=== PATIENT | male | born 1945 | race Caucasian/White ===

== ENCOUNTER 2020-06-09 10:48 | Outpatient (REF) | payer BC, SELFPAY ==
[2020-06-09 11:01] LABS: MANUAL DIFF FLAG NO
[2020-06-09 11:39] LABS: Basophils Absolute Auto 0.1 X10*3/uL (0.0-0.2); Basophils Percent Auto 0.8 % (0-2); Eosinophils Absolute Auto 0.1 X10*3/uL (0.0-0.4); Eosinophils Percent Auto 1.5 % (0-4); Hematocrit 46.4 % (42-52); Hemoglobin 15.3 g/dl (14.0-18.0); Imm Gran Abs Auto 0.07 X10*3/uL (0.00-0.03); Imm Gran Pct Auto 0.8 % (0.0-0.4); Lymphocytes Absolute Auto 4.1 X10*3/uL (1.2-4.9); Lymphocytes Percent Auto 46.1 % (20-40); Mean Corpuscular Hemoglobin 30.8 pg (27.0-33.0); Mean Corpuscular Volume 93.5 fL (80-98); Monocytes Absolute Auto 0.8 X10*3/uL (0.1-1.2); Neutrophils Absolute Auto 3.7 X10*3/uL (2.0-8.3); Neutrophils Percent Auto 41.8 % (45-73); Platelet Count 199 X10*3/uL (160-400); Red Blood Count 4.96 X10*6/uL (4.60-5.80); Red Cell Distribution Width 12.7 % (11.0-16.0); White Blood Count 8.8 X10*3/uL (4.8-10.8)
[2020-06-09 11:52] LABS: Glucose Urine UA NEG (NEG); Leukocyte Esterase Urine NEG (NEG); Nitrite Urine NEG (NEG); PH 5.5 (5.0-8.0); Urine Blood NEG (NEG); Urine Ketones NEG (NEG); Urine Protein NEG (NEG-TRACE)
[2020-06-09 11:54] LABS: Estimated Average Glucose 103 mg/dL; Hemoglobin A1c % 5.2 %
[2020-06-09 11:56] LABS: Appearance Urine CLEAR; Color Urine YELLOW
[2020-06-09 12:15] LABS: Alanine Aminotransferase 23 U/L (0-40); Alkaline Phosphatase 54 U/L (39-117); Anion Gap 10 (12-20); Aspartate Amino Transferase 25 U/L (5-37); Bilirubin Total 0.6 mg/dL (0.0-1.0); Blood Urea Nitrogen 15 mg/dL (9-16); Calcium 8.2 mg/dL (8.4-10.2); Carbon Dioxide 29 mmol/L (22-29); Chloride 105 mmol/L (96-108); Cholesterol 179 mg/dL; Estimated Glomerular Filt Rate > 60; Glucose Fasting 99 mg/dL (60-99); HDL Cholesterol 34 mg/dL; LDL Cholesterol Calculated 98 mg/dl; Sodium 140 mmol/L (135-145); Total Protein 6.3 g/dL (6.5-8.0); Triglycerides 239 mg/dL
[2020-06-09 12:36] LABS: PSA,Total (Free>4and<10) < 0.05 ng/mL (0.00-4.00)
== END 2020-06-09 10:49 | disposition home or self-care (01) ==
LOC: HO.LNP 10:48
PROVIDERS: Visit Provider Internal Medicine
DX: Z00.00 Encounter for general adult medical examination without abnormal findings (principal); I10 Essential (primary) hypertension; R73.09 Other abnormal glucose; D72.820 Lymphocytosis (symptomatic)
CPT/HCPCS: 80053; 80061; 81003; 83036; 84153; 85025

== ENCOUNTER 2020-06-15 12:49 | Outpatient (REF) | payer BC, SELFPAY ==
--- NOTE | ~2020-06-15 | XR_ITS ---
EXAMINATION: XR CHEST CLINICAL INFORMATION: Travel advice encounter. COMPARISON: 08/24/2017 TECHNIQUE: Two views of the chest were obtained. FINDINGS: The lungs are hyperinflated but clear. The heart size and pulmonary vascularity is normal. There is mild levoscoliosis with moderate ventral spondylosis. No lytic process. XR/XR chest 2V IMPRESSION: Expanded lungs are clear. Levoscoliosis of moderate ventral spondylosis mid dorsal spine.
== END 2020-06-15 12:50 | disposition home or self-care (01) ==
LOC: HO.XRAY 12:49
PROVIDERS: PCP Internal Medicine; Visit Provider Internal Medicine
DX: Z71.84 Encounter for health counseling related to travel (principal)
CPT/HCPCS: 71046

== ENCOUNTER 2021-09-17 11:27 | Outpatient (REF) | payer BC, SELFPAY ==
[2021-09-17 11:32] LABS: MANUAL DIFF FLAG NO
[2021-09-17 12:37] LABS: Basophils Absolute Auto 0.1 X10*3/uL (0.0-0.2); Basophils Percent Auto 0.6 % (0-2); Eosinophils Absolute Auto 0.1 X10*3/uL (0.0-0.4); Eosinophils Percent Auto 0.8 % (0-4); Hematocrit 45.8 % (42.0-52.0); Hemoglobin 15.2 g/dl (14.0-18.0); Imm Gran Abs Auto 0.06 X10*3/uL (0.00-0.03); Imm Gran Pct Auto 0.6 % (0.0-0.4); Lymphocytes Absolute Auto 3.4 X10*3/uL (1.2-4.9); Mean Corpuscular HGB Conc 33.2 g/dl (31.0-36.0); Mean Corpuscular Hemoglobin 31.3 pg (27.0-33.0); Mean Corpuscular Volume 94.4 fL (80.0-98.0); Monocytes Absolute Auto 0.9 X10*3/uL (0.1-1.2); Monocytes Percent Auto 9.3 % (2-11); Neutrophils Absolute Auto 5.4 x10*3/uL (2.0-8.3); Neutrophils Percent Auto 54.7 % (45-73); Platelet Count 216 X10*3/uL (160-400); Red Blood Count 4.85 X10*6/uL (4.60-5.80); Red Cell Distribution Width 12.8 % (11.0-16.0)
[2021-09-17 13:03] LABS: Alanine Aminotransferase 14 U/L (0-40); Albumin Level 3.9 g/dL (3.5-5.0); Alkaline Phosphatase 49 U/L (39-117); Anion Gap 11 (12-20); Aspartate Amino Transferase 19 U/L (5-37); Bilirubin Total 0.8 mg/dL (0.0-1.0); Blood Urea Nitrogen 14 mg/dL (9-16); Calcium 8.7 mg/dL (8.4-10.2); Carbon Dioxide 27 mmol/L (22-29); Chloride 106 mmol/L (96-108); Cholesterol 181 mg/dL; Estimated Glomerular Filt Rate > 60; Glucose Fasting 99 mg/dL (60-99); HDL Cholesterol 39 mg/dL; LDL Cholesterol Calculated 115 mg/dl; Potassium 4.3 mmol/L (3.3-5.1); Sodium 140 mmol/L (135-145); Total Protein 6.3 g/dL (6.5-8.0); Triglycerides 139 mg/dL
[2021-09-17 13:10] LABS: Creatinine Urine 134.28 mg/dL; Microalbum/Creatinine Ratio Ur 5.9 ug/mg cr
[2021-09-17 13:12] LABS: Estimated Average Glucose 103 mg/dL; Hemoglobin A1c % 5.2 %
[2021-09-17 13:15] LABS: Appearance Urine CLEAR; Color Urine YELLOW; Glucose Urine UA NEG (NEG); Leukocyte Esterase Urine NEG (NEG); Nitrite Urine NEG (NEG); Specific Gravity - Urine 1.015 (1.005-1.025); Urine Blood NEG (NEG); Urine Ketones NEG (NEG); Urine Protein NEG (NEG-TRACE)
[2021-09-17 13:21] LABS: PSA,Total (Free>4and<10) < 0.05 ng/mL (0.00-4.00)
[2021-09-17 13:36] LABS: RBC Urine 0-2 /HPF (0); Squamous Epithelial Cell Urine TRACE /LPF; WBC Urine 0-2 /HPF (0-4)
== END 2021-09-17 11:28 | disposition home or self-care (01) ==
LOC: HO.LNP 11:27
PROVIDERS: Visit Provider Internal Medicine
DX: Z00.00 Encounter for general adult medical examination without abnormal findings (principal); Z12.5 Encounter for screening for malignant neoplasm of prostate; R73.03 Prediabetes; I10 Essential (primary) hypertension; D72.820 Lymphocytosis (symptomatic)
CPT/HCPCS: 80053; 80061; 81001; 82043; 83036; 84153; 85025

== ENCOUNTER 2023-01-27 10:27 | Outpatient (REF) | payer BC, SELFPAY ==
[2023-01-27 10:31] LABS: MANUAL DIFF FLAG NO
[2023-01-27 10:48] LABS: Basophils Absolute Auto 0.1 X10*3/uL (0.0-0.2); Basophils Percent Auto 0.8 % (0-2); Eosinophils Absolute Auto 0.1 X10*3/uL (0.0-0.4); Eosinophils Percent Auto 1.5 % (0-4); Hematocrit 48.4 % (42.0-52.0); Hemoglobin 15.7 g/dl (14.0-18.0); Imm Gran Abs Auto 0.05 X10*3/uL (0.00-0.03); Imm Gran Pct Auto 0.6 % (0.0-0.4); Lymphocytes Absolute Auto 4.4 X10*3/uL (1.2-4.9); Lymphocytes Percent Auto 49.3 % (20-40); Mean Corpuscular HGB Conc 32.4 g/dl (31.0-36.0); Mean Corpuscular Hemoglobin 30.5 pg (27.0-33.0); Mean Corpuscular Volume 94.2 fL (80.0-98.0); Monocytes Absolute Auto 0.8 X10*3/uL (0.1-1.2); Neutrophils Absolute Auto 3.5 x10*3/uL (2.0-8.3); Neutrophils Percent Auto 38.8 % (45-73); Platelet Count 213 X10*3/uL (160-400); Red Blood Count 5.14 X10*6/uL (4.60-5.80); Red Cell Distribution Width 12.6 % (11.0-16.0); White Blood Count 8.9 X10*3/uL (4.8-10.8)
[2023-01-27 10:54] LABS: Estimated Average Glucose 103 mg/dL; Hemoglobin A1c % 5.2 % (<6.0)
[2023-01-27 10:56] LABS: Appearance Urine Clear; Color Urine Yellow; Glucose Urine UA Negative (Negative); Leukocyte Esterase Urine Negative (Negative); Nitrite Urine Negative (Negative); Urine Blood Negative (Negative); Urine Ketones Negative (Negative); Urine Protein Negative (Neg-Trace)
[2023-01-27 11:09] LABS: Alanine Aminotransferase 23 U/L (0-40); Albumin Level 3.9 g/dL (3.5-5.0); Alkaline Phosphatase 51 U/L (39-117); Anion Gap 10 (12-20); Aspartate Amino Transferase 25 U/L (5-37); Bilirubin Total 0.4 mg/dL (0.0-1.0); Blood Urea Nitrogen 16 mg/dL (9-16); Calcium 9.1 mg/dL (8.4-10.2); Carbon Dioxide 29 mmol/L (22-29); Chloride 107 mmol/L (96-108); Cholesterol 174 mg/dL (<200); Estimated Glomerular Filt Rate > 60; Glucose Fasting 103 mg/dL (60-99); HDL Cholesterol 35 mg/dL (>40); LDL Cholesterol Calculated 108 mg/dL (<100); Potassium 3.9 mmol/L (3.3-5.1); Sodium 142 mmol/L (135-145); Total Protein 6.7 g/dL (6.5-8.0); Triglycerides 155 mg/dL (<150)
[2023-01-27 11:20] LABS: Prostate Specific Antigen < 0.10 ng/mL (<0.05-4.0)
[2023-01-27 11:32] LABS: Creatinine Urine 118.22 mg/dL
== END 2023-01-27 10:28 | disposition home or self-care (01) ==
LOC: HO.LNP 10:27
PROVIDERS: Visit Provider Internal Medicine
DX: Z00.00 Encounter for general adult medical examination without abnormal findings (principal); Z12.5 Encounter for screening for malignant neoplasm of prostate; R73.03 Prediabetes; D72.820 Lymphocytosis (symptomatic); I10 Essential (primary) hypertension
CPT/HCPCS: 80053; 80061; 81003; 82043; 82570; 83036; 84153; 85025

== ENCOUNTER 2023-02-27 14:20 | Outpatient (AMB) | payer BC, SELFPAY ==
--- NOTE | 2023-02-27 14:23 | A.OFFVIS_ITS ---
Intake Vital Signs 02/27/23 14:33 BP 135/80 Blood Pressure Location Rt brachial Position Sitting Intake Visit Reasons: right inguinal hernia, bulging ? strangulation Intake Note: This patient was referred for an assessment for right inguinal hernia. Patient c/o; Onset 2 days ago, reports no pain or discomfort, reports bulge in the right groin. Fish Peddler Required: No Accompanied by: Self / Same As Patient Allergies No Known Allergies Allergy (Verified 02/27/23 14:32) Medication List - Last Reconciled 02/27/23 by Eliu Funez MD No Known Home Meds HPI right inguinal hernia, bulging ? strangulation HPI Details 77-year-old male referred for right ingu inal hernia. He says that he has had this lesion a bulge on the right groin for years. This had never bothered him For the past 2 days, he had noticed the bulge had been larger and noticeable. He denies any pain or tenderness. He says that this really was not bothering him but he decided have this checked by his primary care physician today so was referred to me. He denies any GI complaints. He denies any nausea or vomiting. [facility] Medical History (Updated 02/27/23 @ 14:45 by Eliu Funez MD) Right inguinal hernia Macular degeneration Social History Alcohol intake: never Patient Tobacco Use Status: Never used Tobacco Review of Systems Const Denies chills and Denies fever(s) Card Denies chest pain, Denies dyspnea and Denies dyspnea on exertion Resp Denies cough, Denies dyspnea and Denies dyspnea on exertion GI Denies hematochezia and Denies change in bowel habits Denies hematuria and Denies difficulty urinating Musc Denies back pain and Denies limited range of motion Neuro Denies focal weakness and Denies convulsions Psych Denies depression and Denies mood swings Physical Exam Vital Signs: Last Vital Signs BP 135/80 02/27/23 14:33 GI Other: Large right inguinal hernia nontender Assessment & Plan Assessment & Plan (1) Right inguinal hernia: Code(s): K40.90 - Unilateral inguinal hernia, without obstruction or gangrene, not specified as recurrent Plan: He says he has noticed this bulge on the right groin for 2 days now. He did not have any pain or tenderness. I was able to reduce this without difficulty when he was in supine position. I did explain to him the option of proceeding with repair. I explained the technique of repair with mesh. I reviewed the risks including but not limited to bleeding, infection, injury to bowel, recurrence, postop pain, as well as the benefits and alternatives. He says he wants to proceed He did state that he wants this done after the holidays as he has a lot of family coming. He says that the hernia and does not really bother him at this time. He understands the risks of acute incarceration and the need for emergent surgery if this happens. Coding Level of Care Code New Pt Level 3 (80221) Diagnoses Right inguinal hernia K40.90
[2023-02-27 14:33] VITALS: BP 135/80
== END 2023-02-27 14:42 | disposition home or self-care (01) ==
PROVIDERS: PCP Internal Medicine; Visit Provider Surgery
DX: K40.90 Unilateral inguinal hernia, without obstruction or gangrene, not specified as recurrent (principal)
CPT/HCPCS: 99203

== ENCOUNTER → 2023-02-27 14:20 | Outpatient (BNVA) | payer BC, SELFPAY | PROVIDERS: PCP Internal Medicine; Visit Provider Surgery ==

== ENCOUNTER 2023-04-07 09:08 | Day surgery (SDC) | payer BC, SELFPAY ==
[2023-04-04 11:39] VITALS: BMI 28.6
--- NOTE | 2023-04-05 14:11 | HO.ANESPROP2 ---
HPI - Anesthesia Eval Consult details Narrative: 77yo M for Right Open Hernia Repair Inguinal w/mesh Otherwise healthy, No home rx PMFSH Active Problems Active Problems: All Active Problems (Updated 02/27/23 @ 14:45 by Eliu Funez MD) Right inguinal hernia (Acute) Macular degeneration (Acute) Past Medical History Medical History (Updated 02/27/23 @ 14:45 by Eliu Funez MD) Right inguinal hernia Macular degeneration Social History Social History Alcohol intake: never Patient Tobacco Use Status: Never used Tobacco Use of substances other than those prescribed or required for medical reasons: No Are you DNR?: No Advance Directives: No Advance Directives Information Provided: Yes Meds Allergies Allergy/AdvReac Type Severity Reaction Status Date / Time No Known Allergies Allergy Verified 04/07/23 09:25 Home Medications Medication Instructions Recorded Confirmed Last Taken Type No Known Home Meds 02/27/23 04/07/23 Unknown History Exam Height,Weight and Vital Signs: Height 5 ft 8 in Weight 85.275 kg Pertinent Lab Results Pertinent Lab Results: Laboratory Tests 01/27/23 Unknown WBC 8.9 Hgb 15.7 Hct 48.4 Plt Count 213 Sodium 142 Potassium 3.9 Chloride 107 Carbon Dioxide 29 BUN 16 Creatinine 0.97 Assessment and Plan Assessment Anesthesia Assessment: Chart Reviewed
[2023-04-07] VITALS (8 sets, daily range): BP systolic 129–157; BP diastolic 72–90; PULSE 71–80; RESP 16–18; TEMP 36.1–36.9; O2SAT 94–99; BMI 28.8
[2023-04-07] MEDS: Lactated Ringers 1,000 ML 100 ML IVCONT (09:48)
--- NOTE | 2023-04-07 11:01 | MHC.SHP ---
Pre-Procedural Eval Section A Date of Service: 04/07/23 Section B Chief Complaint: Unilateral inguinal hernia, without obstruction or Details of Present Illness: has reducible right inguinal hernia Relevant Family History (Specify if Yes): No Relevant Social History: None Present Medications: see Short Stay Collaborative assessment (macular degeneration) Allergies: Allergies Allergy/AdvReac Type Severity Reaction Status Date / Time No Known Allergies Allergy Verified 04/07/23 09:25 Review of Systems Sugical H&P ROS: Negative: Constitution, Cardiovascular, Respiratory, Neurological, Psychiatric, Hem-Onc, Allergic/Immunologic, Gastrointestinal, Genitourinary, Musculoskeletal, Integumentary, Endocrine and Eyes/Ears/Nose/Throat Exam Surgical H&P Exam: Normal: HEENT, Normal: Heart, Normal: Lungs, Normal: Extremities, Normal: Abdomen, Normal: Skin and Normal: Neurological Exam Comment: right inguinal hernia Plan Diagnosis/Plan: Unchanged I have reviewed the history and physical and performed a pertinent physical examination on my patient. No changes have occurred unless specified. Time Spent With Patient Time: Total time managing care of this patient today ____ minutes.
--- NOTE | 2023-04-07 11:53 | P.OP_ITS ---
Operative Note Operative Note Date of Service: 04/07/23 Narrative: Preop Diagnosis: Right inguinal hernia Postop diagnosis: Right inguinal hernia, indirect Procedure: Repair of a right inguinal hernia with mesh Surgeon: Eliu Funez MD property management assistant: NANCY Coburn The patient is a 77-year-old male with a reducible mass on the right groin consistent with a right inguinal hernia. He wanted to proceed with repair. He understood the technique of the procedure as well as the risks, benefits, and alternatives. He was brought to the operating room. He was placed supine under general anesthesia via laryngeal mask airway. The right groin was prepped and draped in the usual sterile fashion. A surgical time-out was done. The patient received cefazolin 2 g IV preoperatively. I infiltrated the planned line of incision with lidocaine 1%. I made a short incision along an imaginary line from the anterior superior iliac spine to the pubic ramus using a blade 15. This was carried down through the full-thickness of the skin and subcutaneous fat with electrocautery. I visualized the external oblique aponeurosis. I bluntly dissected this with a gauze to expose the external ring. I then made an incision on the external oblique aponeurosis using a blade 15 and extended this inferomedially to connect with the external ring. The inguinal canal was therefore entered . I bluntly dissected the spermatic cord and its contents with an index finger until was able to pass a [place] drain around this. This [place] drain was used for retraction. I identified the vas deferens and its accompanying vessels. I was able to visualized the fat containing hernia. This was along the anteromedial aspect of the cord and was an indirect hernia. I gently this from the rest of the cord contents with blunt dissection all the way down to the level of the internal ring. I was able to reduce the hernia completely. I reinforced internal ring with a large-sized Prolene plug. The plug was secured with Prolene 2 sutures to the shelving edge of the inguinal laterally and the internal oblique superiorly and medially using the inner leaves of the plug. I then used a keyhole mesh to reinforce the entire floor. The tails of the mesh were passed around the cord at the level of the internal ring. I secured these together with Prolene 2 sutures. I then secured the mesh to the shelving edge of the inguinal ligament laterally and the internal oblique superiorly and medially as well as the pubic ramus inferomedially with Prolene 2-0 sutures . I observed for hemostasis. I then irrigated. Once hemostasis was confirmed, I closed the external oblique aponeurosis with a running Polysorb 2-0 stitch to re-create the external ring. The subcutaneous layer was reapposed with Polysorb 3-0 interrupted sutures. Skin closure was achieved with Polysorb 4-0 subcuticular running sutures. Steri-Strips and dressings were applied. The area was infiltrated with Marcaine 0.5% for postop analgesia. The procedure was completed. The patient tolerated the procedure well. There were no immediate complications. Initial and final counts of sponges and instruments were correct. Estimated blood loss was about 5 cc. The patient was extubated w ithout difficulty and transferred to the recovery room with stable vital signs.
[2023-04-07] MEDS: oxyCODONE HCl Immed Release 5 MG TABLET PO (12:59)
[2023-04-07] MEDS: Acetaminophen 325 MG TABLET 650 MG PO (13:00)
== END 2023-04-07 14:20 | disposition home or self-care (01) ==
PROVIDERS: PCP Internal Medicine; Visit Provider Surgery
PROC: (CPT 49505; principal; 2023-04-07 11:40)
DX: K40.90 Unilateral inguinal hernia, without obstruction or gangrene, not specified as recurrent (principal); H35.30 Unspecified macular degeneration
CPT/HCPCS: 49505; C1781; J0690; J1100; J2371; J2405; J2704; J2795; J3010

== ENCOUNTER → 2023-04-07 09:08 | Outpatient (BNV) | payer BC, SELFPAY | PROVIDERS: PCP Internal Medicine; Visit Provider Surgery | DX: K40.90 Unilateral inguinal hernia, without obstruction or gangrene, not specified as recurrent (principal) | CPT/HCPCS: 49505 ==

== ENCOUNTER 2023-04-20 09:52 | Outpatient (AMB) | payer BC, SELFPAY ==
--- NOTE | 2023-04-20 09:55 | A.OFFVIS_ITS ---
Intake Vital Signs 04/20/23 10:01 BP 126/82 Blood Pressure Location Lt brachial Position Sitting Intake Visit Reasons: S/P RIH w/mesh Intake Note: This patient presents for a post-op assessment status post right inguinal hernia repair. Patient c/o; reports no complaints at this time. Activity Aide Required: No Accompanied by: Self / Same As Patient Allergies No Known Allergies Allergy (Verified 04/20/23 10:02) HPI S/P RIH w/mesh HPI Details She underwent repair of right inguinal hernia with mesh last 04/07/2022. He tolerated procedure well. He currently says that this is going well and denies any significant complaints. [facility] Medical History Right inguinal hernia Macular degeneration Surgical History History of right inguinal hernia repair (~04/07/23) Social History Alcohol intake: never Comment: with movement Patient Tobacco Use Status: Never used Tobacco Review of Systems Const Denies chills and Denies fever(s) Card Denies chest pain, Denies dyspnea and Denies dyspnea on exertion Resp Denies cough, Denies dyspnea and Denies dyspnea on exertion GI Denies hematochezia and Denies change in bowel habits Denies hematuria and Denies difficulty urinating Musc Denies back pain and Denies limited range of motion Neuro Denies focal weakness and Denies convulsions Psych Denies depression and Denies mood swings Physical Exam Vital Signs: Last Vital Signs BP 126/82 04/20/23 10:01 Const General: comfortable and no acute distress Resp Effort & Inspection: normal respiratory effort GI Other: Right inguinal repair site is well healed, not infected, repair intact Assessment & Plan Assessment & Plan (1) Right inguinal hernia: Code(s): K40.90 - Unilateral inguinal hernia, without obstruction or gangrene, not specified as recurrent Plan: Status post repair with mesh. He is doing very well. His incision is well healed. The repair site is intact. I advised him to avoid any lifting more than 20 lb for full month. He can follow up on a p.r.n. basis. Coding Level of Care Code Global (49286) Diagnoses Right inguinal hernia K40.90
[2023-04-20 10:01] VITALS: BP 126/82
== END 2023-04-20 10:15 | disposition home or self-care (01) ==
PROVIDERS: PCP Internal Medicine; Visit Provider Surgery
DX: K40.90 Unilateral inguinal hernia, without obstruction or gangrene, not specified as recurrent (principal)
CPT/HCPCS: 99024

== ENCOUNTER → 2023-04-20 09:52 | Outpatient (BNVA) | payer BC, SELFPAY | PROVIDERS: PCP Internal Medicine; Visit Provider Surgery ==

== ENCOUNTER 2024-07-29 11:22 | Outpatient (REF) | payer BC, SELFPAY ==
[2024-07-29 11:26] LABS: MANUAL DIFF FLAG NO
[2024-07-29 12:29] LABS: Basophils Absolute Auto 0.1 X10*3/uL (0.0-0.2); Basophils Percent Auto 0.7 % (0-2); Eosinophils Absolute Auto 0.2 X10*3/uL (0.0-0.4); Hematocrit 46.5 % (42.0-52.0); Hemoglobin 15.5 g/dl (14.0-18.0); Imm Gran Abs Auto 0.07 X10*3/uL (0.00-0.03); Imm Gran Pct Auto 0.8 % (0.0-0.4); Lymphocytes Percent Auto 47.1 % (20-40); Mean Corpuscular HGB Conc 33.3 g/dl (31.0-36.0); Mean Corpuscular Hemoglobin 31.1 pg (27.0-33.0); Mean Corpuscular Volume 93.2 fL (80.0-98.0); Mean Platelet Volume 10.9 fL (9.4-12.4); Monocytes Absolute Auto 0.7 X10*3/uL (0.1-1.2); Monocytes Percent Auto 8.7 % (2-11); Neutrophils Absolute Auto 3.5 x10*3/uL (2.0-8.3); Neutrophils Percent Auto 40.7 % (45-73); Platelet Count 218 X10*3/uL (160-400); Red Blood Count 4.99 X10*6/uL (4.60-5.80); Red Cell Distribution Width 13.2 % (11.0-16.0); White Blood Count 8.5 X10*3/uL (4.8-10.8)
[2024-07-29 12:41] LABS: Appearance Urine Clear; Color Urine Yellow
[2024-07-29 12:42] LABS: Glucose Urine UA Negative (Negative); Leukocyte Esterase Urine Negative (Negative); Nitrite Urine Negative (Negative); PH 6.5 (5.0-9.0); Urine Blood Negative (Negative); Urine Ketones Negative (Negative); Urine Protein Negative (Neg-Trace)
[2024-07-29 12:45] LABS: Alanine Aminotransferase 21 U/L (0-40); Alkaline Phosphatase 52 U/L (39-117); Anion Gap 11 (12-20); Aspartate Amino Transferase 31 U/L (5-37); Bilirubin Total 0.9 mg/dL (0.0-1.0); Blood Urea Nitrogen 13 mg/dL (9-16); Calcium 8.6 mg/dL (8.4-10.2); Carbon Dioxide 29 mmol/L (22-29); Chloride 106 mmol/L (96-108); Cholesterol 178 mg/dL (<200); Estimated Glomerular Filt Rate > 60; Glucose Fasting 108 mg/dL (60-99); HDL Cholesterol 33 mg/dL (>40); LDL Cholesterol Calculated 108 mg/dL (<100); Sodium 142 mmol/L (135-145); Total Protein 6.7 g/dL (6.5-8.0); Triglycerides 185 mg/dL (<150)
[2024-07-29 12:59] LABS: Creatinine Urine 51.44 mg/dL; Microalbumin Urine < 5.0 mg/L
[2024-07-29 13:01] LABS: Bacteria Urine None Seen (None Seen); Hyaline Casts Urine 0-2 /LPF (0-2); RBC Urine 0-2 /HPF (0-2); Squamous Epithelial Cell Urine 0-2 /HPF (0-2); WBC Urine 0-5 /HPF (0-5)
[2024-07-29 13:05] LABS: Estimated Average Glucose 108 mg/dL; Hemoglobin A1C 145.7059 umol/L; Hemoglobin A1c % 5.4 % (<6.0); Total Hemoglobin (HGBA1C) 4057.3548 umol/L
--- OUTSIDE RECORDS SUMMARY | 2024-07-29 13:09 | XMS_ITS ---
Author Organization Ray Davis MD Address [address] [place] [phone] Care Team Providers Care Cleaner And Polisher Name Role Phone aRy Davis Primary Care Provider [phone] REASON FOR VISIT HDF Immunizations Vaccine Route Administration Date Status Comme nts Influenza High Dose IM Intramuscular 12/04/2023 Administer ed Encounters Encounter Location Date Provider Diagnosis Ray Davis MD [address] [place] [phone] 12/04/2023 Rya Davis Encounter for immunization Z23 Assessments Encounter Date Diagnosis (ICD Code) Assessment Notes Treatment Notes Treatment Clinical Notes Section Notes 12/04/2023 Encounter for immunization (ICD-10 - Z23) Plan Of Treatment Next Appt Details Provider Name:Ray Enrique ier, 08/13/2024 11:00:00 AM, [address], Suite [facility], [place], [place], [phone], Progress Notes * Stone BARDOB:08/1945 (78 yo M)Acc No.[id number]:12/04/2023 Progress Note Patient:?Mandie BAR Provider:?Ray Davis MD :1945???Age:78 Y???Sex:Male Lavell e:12/04/2023 Address: [place], [id number] Subjective: * Chief Complaints: * ???1. HDF. * Medical History:? Objective: * Vitals:? Assessment: * Assessment: 1.?Encounter for immunizatio n - Z23 (Primary)??? Plan: * Treatment: * Immunizations:? Influenza High Dose : 0.5 mL (Dose No:1) (Route: Intramuscular) given by Lien Alarcon , Office Staff on Left Deltoid * Procedure Codes:?93429 FLU V ACC PRSV FREE INC ANTIG, 38756 IMMUNIZATION ADMIN * Preventive Medicine:? ??Immunizations:?Influenza?Have you had a flu shot since the most recent November 25??Yes.? * * The named appointment provid er may or may not be the originator of this progress note, and it is not deemed complete until electronically signed by the appointment provider. Sign off status: Pending * Provider:?Ray Davis MD Date:?0 12/04/2023 Generated for Emilia zeng/Tico/Sylvestersmitting on:?07/29/2024 01:09 PM EDT
--- OUTSIDE RECORDS SUMMARY | 2024-07-29 13:10 | XMS_ITS ---
Author Organization Ray Davis MD Address [address] [place] [phone] Care Team Providers Care Flight Operations Coordinator Name Role Phone Ray Davis Primary Care Provider [phone] Medications Medication SIG (Take, Route, Frequency, Duration) Notes Start Date End Date Status Paxlovid (300/100) 20 x 150 MG & 10 x 100MG 3 tablets Orally Twice a day for 5 day(s) 12/29/2023 Active Encounters Encounter Location Date Provider Diagnosis Ray Davis MD [address] [place] [phone] 12/29/2023 Ray Davis Plan Of Treatment Medication Medication Name Sig Start Date Stop Date Notes Paxlovid (300/100) 20 x 150 MG & 10 x 100MG 3 tablets Orally Twice a day for 5 day(s) 12/29/2023 Next Appt Details Provider Name:Rya estrella, 08/13/2024 11:00:00 AM, [address], Suite [facility], [place], [place], [phone], Progress Notes * Stone BARDOB:08/1945 (78 yo M)Acc No.[id number]:12/29/2023 Patient:?Mandie Bar :1945???Age:78 Y???Sex:Male Address:[address] [place] [id number] * Refills? Start Paxlovid (300/100) Tablet Therapy Pack, 20 x 150 MG & 10 x 100MG, Orally, 30, 3 tablets, Twice a day, 5 day(s) * true * Date:? Generated for Emilia zeng/Tico/eTransmitting on:?07/29/2024 01:10 PM EDT
--- OUTSIDE RECORDS SUMMARY | 2024-07-29 13:10 | XMS_ITS ---
Author Organization Ray Davis MD Address [address] [place], [place] [phone] Care Team Providers Care Summer Associate Name Role Phone Ray Davis Primary Care Provider Results Component Value Reference Range Notes Comprehensive [place]. Panel Fa st (Not yet reviewed by provider) Interpretation: Performing Lab:[facility], [address] [place] [id number] Notes/Report: Sodium 142 135-145 mmol/L Potassium 4.0 3.3-5.1 mmol/L Chloride 106 96-108 mmol/L Carbon Dioxide 29 22-29 mmol/L Anion Gap 11 12-20 Blood Urea Nitrogen 13 9-16 mg/dL Creatinine 0.79 0.5-1.4 mg/dL Estimated Glomerular Filt Rate > 60 Chronic Kidney Disease: Estimated GFR < 60 mL/min/1.73m2 Severe Kidney Disease: Estimated GFR < 15 mL/min/1.73m2 Glucose Fasting 108 60-99 mg/dL A fasting glucose from 100-125 mg/dl is considered impaired (pre-diabetes). Calcium 8.6 8.4-10.2 mg/dL Bilirubin Total 0.9 0.0-1.0 mg/dL Aspartate Amino Transferase 31 5-37 U/L Alanine Aminotransferase 21 0-40 U/L Total Protein 6.7 6.5-8.0 g/dL Albumin Level 4.0 3.5-5.0 g/dL Alkaline Phosphatase 52 39-117 U/L Lipid Panel (Not yet reviewe d by provider) Interpretation: Performing Lab:[address] [phone] Notes/Report: Triglycerides 185 <150 mg/dL Desirable Triglyceride: less than 150 mg/dL Borderline High Triglyceride 150-199 mg/dL High Triglyceride: 200-499 mg/dL Very High Triglyceride: greater than or equal to 5OO mg/dL Cholesterol 178 <200 mg/dL Desirable Cholesterol: less than 200 mg/dL Borderline High Cholesterol: 200-239 mg/dL High Cholesterol: greater than 239 mg/dL LDL Cholesterol Calculated 108 <100 mg/dL Desirable LDL: less than 100 mg/dL Near Optimal/Above Optimal LDL: 110-129 mg/dL Borderline High LDL: 130-159 mg/dL High LDL: 160-189 mg/dL Very High LDL: greater than or equal to 190 mg/dL HDL Cholesterol 33 >40 mg/dL Desirable HDL: greater than 40 mg/dL Note: This HDL assay may give artificially low results in patients with liver disease. Microalbumin, Random (Not ye t reviewed by provider) Interpretation: Performing Lab:[address] [phone] Notes/Report: Creatinine Urine 51.44 Microalbumin Urine < 5.0 Microalbum/Creatinine Ratio Ur TNP <30 ug/mg cr Unable to calculate albumin/creatinine ratio due to low microalbumin or creatinine result. Hemoglobin A1c (Not yet revi ewed by provider) Interpretation: Performing Lab:[address] [phone] Notes/Report: Hemoglobin A1c % 5.4 <6.0 % Hemoglobin A1C Reference Range Adults: 4.8 - 6.0 % Non diabetic: < 6.0 % Goal: < 7.0 % Additional Action Suggested: > 8.0 % Note: Hemoglobin A1c results are invalid for patients with abnormal amounts of HbF. Blood transfusions may impact the HbA1c concentration in the patient sample. Estimated Average Glucose 108 eAG = Estimated average glucose which is %A1C expressed as average glucose, using the formula of the [id number]-Evvejqn Average Glucose study (ADAG), Diabetes Care, Vol.31,#8, 2007 UA ClnCatch+Micro w/rflx Cul t (Not yet reviewed by provider) Interpretation: Performing Lab:[facility], [address] [place] [phone] Notes/Report: Urine, Clean Catch Color Urine Yellow Appearance Urine Clear PH 6.5 5.0-9.0 Glucose Urine UA Negative Negative mg/dL Urine Blood Negative Negative Specific Star - Urine 1.010 1.005-1.025 Urine Protein Negative Neg-Trace mg/dL Urine Ketones Negative Negative mg/dL Nitrite Urine Negative Negative Leukocyte Esterase Urine Negative Negative RBC Urine 0-2 0-2 /HPF WBC Urine 0-5 0-5 /HPF Squamous Epithelial Cell Urine 0-2 0-2 /HPF Bacteria Urine None Seen None Seen Hyaline Casts Urine 0-2 0-2 /LPF Complete Blood Count Auto Di ff Reviewed date:07/29/2024 12:38:00 PM Interpretation: Performing Lab:[facility], [address] [place] [phone] Notes/Report: White Blood Count 8.5 4.8-10.8 X10*3/uL Red Blood Count 4.99 4.60-5.80 X10*6/uL Hemoglobin 15.5 14.0-18.0 g/dl Hematocrit 46.5 42.0-52.0 % Mean Corpuscular Volume 93.2 80.0-98.0 fL Mean Corpuscular Hemoglobin 31.1 27.0-33.0 pg Mean Corpuscular HGB Conc 33.3 31.0-36.0 g/dl Red Cell Distribution Width 13.2 11.0-16.0 % Platelet Count 218 160-400 X10*3/uL Mean Platelet Volume 10.9 9.4-12.4 fL Neutrophils Percent Auto 40.7 45-73 % Imm Gran Pct Auto 0.8 0.0-0.4 % Lymphocytes Percent Auto 47.1 20-40 % Monocytes Percent Auto 8.7 2-11 % Eosinophils Percent Auto 2.0 0-4 % Basophils Percent Auto 0.7 0-2 % NRBC Pct Auto 0.0 0.0-0.2 /100WBC Neutrophils Absolute Auto 3.5 2.0-8.3 x10*3/u L Imm Gran Abs Auto 0.07 0.00-0.03 X10*3/uL Lymphocytes Absolute Auto 4.0 1.2-4.9 X10*3/u L Monocytes Absolute Auto 0.7 0.1-1.2 X10*3/uL Eosinophils Absolute Auto 0.2 0.0-0.4 X10*3/u L Basophils Absolute Auto 0.1 0.0-0.2 X10*3/uL NRBC Abs Auto 0.000 0.0-0.012 X10*3/uL REASON FOR VISIT yearly fasting labs Encounters Encounter Location Date Provider Diagnosis Ray Davis MD [address] [place], [place] [phone] 07/29/2024 Ray Davis Blood tests for routine general physical examination Z00.00 ; Prediabetes R73.09 ; Lymphocytosis D72.820 and Essential hypertension I10 Assessments Encounter Date Diagnosis (ICD Code) Assessment Notes Treatment Notes Treatment Clinical Notes Section Notes 07/29/2024 Blood tests for routine general physical examination (ICD-10 - Z00.00) 07/29/2024 Prediabetes (ICD-10 - R73.09) 07/29/2024 Lymphocytosis (ICD-10 - D72.820) 07/29/2024 Essential hypertension (ICD-10 - I10) Plan Of Treatment Pending Test Test Name Order Date Comprehensive [place]. Panel Fast Lipid Panel 07/29/2024 PSA,Total (Free>4and<10) 07/29/2024 Microalbumin, Random 07/29/2024 Hemoglobin A1c 07/29/2024 UA ClnCatch+Micro w/rflx Cult 07/29/2024 Next Appt Details Provider Name:Ray Enrique ier, 08/13/2024 11:00:00 AM, [address], [address], [place], [place], [phone], Progress Notes * Stone BARDOB:08/1945 (78 yo M)Acc No.[id number]:07/29/2024 Progress Note Patient:?DIPIKA Ginettekeerthijosey diaz Provider:?Ray Davis MD :1945???Age:78 Y???Sex:Male Lavell e:07/29/2024 Address:[place], [place] Subjective: * Chief Complaints: * ???1. Yearly fasting labs. * Medical History:? Objective: * Vitals:? Assessment: * Assessment: 1.?Blood tests for routine g eneral physical examination - Z00.00 (Primary)???2.?Prediabetes - R73.09???3.?Lymphocytosis - D72.820???4.?Essential hypertension - I10??? Plan: * Treatment: 2.?Prediabetes?LAB: [facility] [place]. Panel Fast (Collection Date & Time - 07/29/2024 07:15 AM) ?LAB: Lipid Panel (Collection Date & Time - 07/29/2024 07:15 AM) ?LAB: PSA,Total (Free>4and<10) ?LAB: Microalbumin, Random (Collection Date & Time - 07/29/2024 07:15 AM) ?LAB: Hemoglobin A1c (Collection Date & Time - 07/29/2024 07:15 AM) ?LAB: UA ClnCatch+Micro w/rflx Cult (Collection Date & Time - 07/29/2024 07:15 AM) ?LAB: Complete Blood Count Auto Diff (Collection Date & Time - 07/29/2024 07:15 AM) 3.?Lymphocytosis?LAB: Comprehensive [place]. Panel Fast (Collection Date & Time - 07/29/2024 07:15 AM) ?LAB: Lipid Panel (Collection Date & Time - 07/29/2024 07:15 AM) ?LAB: PSA,Total (Free>4and<10) ?LAB: Microalbumin, Random (Collection Date & Time - 07/29/2024 07:15 AM) ?LAB: Hemoglobin A1c (Collection Date & Time - 07/29/2024 07:15 AM) ?LAB: UA ClnCatch+Micro w/rflx Cult (Collection Date & Time - 07/29/2024 07:15 AM) ?LAB: Complete Blood Count Auto Diff (Collection Date & Time - 07/29/2024 07:15 AM) 4.?Essential hypertension?LAB: Comprehensive [place]. Panel Fast (Collection Date & Time - 07/29/2024 07:15 AM) ?LAB: Lipid Panel (Collection Date & Time - 07/29/2024 07:15 AM) ?LAB: PSA,Total (Free>4and<10) ?LAB: Microalbumin, Random (Collection Date & Time - 07/29/2024 07:15 AM) ?LAB: Hemoglobin A1c (Collection Date & Time - 07/29/2024 07:15 AM) ?LAB: UA ClnCatch+Micro w/rflx Cult (Collection Date & Time - 07/29/2024 07:15 AM) ?LAB: Complete Blood Count Auto Diff (Collection Date & Time - 07/29/2024 07:15 AM) * Procedure Codes:?62784 VENIP UNCT, ROUTINE* * * The named appointment provid er may or may not be the originator of this progress note, and it is not deemed complete until electronically signed by the appointment provider. Sign off status: Pending * Provider:?Ray Davis MD Date:?0 07/29/2024 Generated for Emilia zeng/Tico/eTransmitting on:?07/29/2024 01:10 PM EDT
--- OUTSIDE RECORDS SUMMARY | 2024-07-29 13:11 | XMS_ITS | Patient Health Record ---
Author Organization Ray Davis MD Address [address] [place], [place] [id number] Care Team Providers Care Ditch Rider Name Role Phone Ray Davis Primary Care Provider [phone] Allergies No Known Allergies Results Component Value Reference Range Notes Comprehensive [place]. Panel Fa st (Not yet reviewed by provider) Interpretation: Performing Lab:[facility], [address] [place] [phone] Notes/Report: Sodium 142 135-145 mmol/L Potassium 4.0 [...] yet reviewe d by provider) Interpretation: Performing Lab:[address] [phone] Notes/Report: Triglycerides 185 <150 mg/dL Desirable Triglyceride: [...] ye t reviewed by provider) Interpretation: Performing Lab:[address] [phone] Notes/Report: Creatinine Urine 51.44 Microalbumin Urine < 5.0 Microalbum/Creatinine Ratio Ur TNP <30 ug/mg cr Unable to calculate albumin/creatinine ratio due to low microalbumin or creatinine result. Hemoglobin A1c (Not yet revi ewed by provider) Interpretation: Performing Lab:[address] [phone] Notes/Report: Hemoglobin A1c % 5.4 <6.0 % [...] average glucose, using the formula of the L3R-Eutuedh Average Glucose study (ADAG), Diabetes Care, Vol.31,#8, 2007 UA ClnCatch+Micro w/rflx Cul t (Not yet reviewed by provider) Interpretation: Performing Lab:[facility], [address] [place] [phone] Notes/Report: Urine, Clean Catch Color Urine Yellow Appearance Urine Clear PH 6.5 5.0-9.0 Glucose Urine UA Negative Negative mg/dL Urine Blood Negative Negative Specific [place] - Urine 1.010 1.005-1.025 Urine Protein Negative [...] ff Reviewed date:07/29/2024 12:38:00 PM Interpretation: Performing Lab:[facility], [address] [place] [phone] Notes/Report: White Blood Count 8.5 4.8-10.8 X10*3/uL [...] X10*3/uL NRBC Abs Auto 0.000 0.0-0.012 X10*3/uL Reason For Referral No Information Medications Medication SIG (Take, Route, Frequency, Duration) Notes Start Date End Date Status Paxlovid (300/100) 20 x 150 MG & 10 x 100MG 3 tablets Orally Twice a day for 5 day(s) 12/29/2023 Active Immunizations Vaccine Route Administration Date Status Comme nts Tetanus Unknown 11/11/2010 Administered Flu Vaccine IM Intramuscular 02/18/2011 Administered Flu Vaccine IM Intramuscular 11/23/2011 Administered [facility] TDaP IM Intramuscular 12/15/2011 Administered DECLINED, PNEUMO Unknown 06/28/2012 Administered Flu Vaccine Unknown 12/21/2012 Administered Shingles IM Intramuscular 12/28/2012 Administered Fluarix Quadrivalent IM Intramuscular 12/16/2013 Administe red PPSV23 (Pnemovax) IM Intramuscular 01/02/2014 Administered Fluarix Quadrivalent IM Intramuscular 12/31/2014 Administe red [facility] Prevnar 13 IM Intramuscular 12/31/2014 Administered [facility] Fluarix Quadrivalent IM Intramuscular 12/25/2018 Administe red Covid Vaccine Unknown 04/28/2020 Administered Covid Vaccine Unknown 05/19/2020 Administered SARS-COV-2 Pfizer Unknown 12/01/2020 Administered SARS-COV-2 Pfizer Unknown 07/27/2021 Administered Influenza High Dose IM Intramuscular 12/15/2022 Administer ed Influenza High Dose IM Intramuscular 12/04/2023 Administer ed Social History Tobacco Use: Social History Observation Description Date Details (start date - stop date) Never Smoker NA - NA Tobacco Use/Smoking Question Answer Notes Patient is a nonsmoker Additional Findings: Tobacco Non-User Cu rrent non-smoker, currently using no form of tobacco Alcohol Screen Question Answer Notes Did you have a drink contain ing alcohol in the past year? Yes How often did you have a dri nk containing alcohol in the past year? 4 or more times a week (4 points) How many drinks did you have on a typical day when you were drinking in the past year? 1 or 2 drinks (0 point) How often did you have 6 or more drinks on one occasion in the past year? Never (0 point) Points 4 Interpretation Positive Problems Problem Type SNOMED Code ICD Code Onset Dates Problem Status W/U Status Risk Notes Problem 32454720 Lymphocytosis (D72.820) Active confirmed Problem 124591136 Other seborrheic keratosis (L82.1) Active confirmed Problem 434842023 Tubular adenoma of colon (D12.6) Active confirmed Problem 74119474 Essential hypertension (I10) Active confirmed Problem 6878830 Prediabetes (R73.09) Active confirmed Problem 687076638 History of prostate cancer (Z85.46) Active confirmed Vital Signs Blood pressure diastolic 80 mm Hg 08/07/2023 luis ght is up 2 pounds since 02-27-23 Height 68 in 08/07/2023 weight is up 2 pounds since 02-27-23 Blood pressure systolic 142 mm Hg 08/07/2023 weig ht is up 2 pounds since 02-27-23 Weight 190 lbs 08/07/2023 weight is up 2 pounds since 02-27-23 BMI 28.89 kg/m2 08/07/2023 weight is up 2 pounds since 02-27-23 Encounters Encounter Location Date Provider Diagnosis Ray Davis MD [address] [place] [id number] 07/29/2024 Ray Davis Blood tests for routine general physical examination Z00.00 ; Prediabetes R73.09 ; Lymphocytosis D72.820 and Essential hypertension I10 Ray Davis MD [address] [place] [id number] 12/04/2023 Ray Davis Encounter for immunization Z23 Ray Davis MD [address] [place] [id number] 08/07/2023 Ray Davis Essential hypertension I10 Ray Davis MD [address] [place] [address] [address] [place] [id number] 12/29/2023 Ray Davis Assessments Encounter Date Diagnosis (ICD Code) Assessment Notes Treatment Notes Treatment Clinical Notes Section Notes 07/29/2024 Blood tests for routine general physical examination (ICD-10 - Z00.00) 12/04/2023 Encounter for immunization (ICD-10 - Z23) 08/07/2023 Essential hypertension (ICD-10 - I10) stable, doing well with good control, will continue to monitor, no need for medication at this time 07/29/2024 Prediabetes (ICD-10 - R73.09) 07/29/2024 Lymphocytosis (ICD-10 - D72.820) 07/29/2024 Essential hypertension (ICD-10 - I10) Plan Of Treatment Pending Test Test Name Order Date Electrocardiogram (EKG) 11/16/2015 XR CHEST 2 VIEW PA & LAT 06/30/2017 XR CHEST 2 VIEW PA & LAT 05/26/2020 Comprehensive [place]. Panel Fast Lipid Panel 07/29/2024 PSA,Total (Free>4and<10) 07/29/2024 Microalbumin, Random 07/29/2024 Hemoglobin A1c 07/29/2024 UA ClnCatch+Micro w/rflx Cult 07/29/2024 Next Appt Details Provider Name:Ray Enrique ier, 08/13/2024 11:00:00 AM, [address] [place] [address], [address], [place], [place], [phone], Insurance Providers Payer Name Payer Address Payer Phone Subscriber Number Group Number Insured Name Patient Relationship to Insured Coverage Start Date Coverage End Date [employer] [address] [place], [place] [id number] Self - patient is the insured Medical (General) History Medical History History ICD Code LOCALIZED CUTANEOUS AMYLOID colonoscopy 2002 due in 2012 ; colonoscopy 06/20/[address] Muñoz due in 5 years discussed need fot colonoscopy 2022 refuses BS today, wants all labs 10/07
[2024-07-29 14:20] LABS: PSA,Total (Free>4and<10) < 0.10 ng/mL (0.00-4.00)
== END 2024-07-29 11:23 | disposition home or self-care (01) ==
LOC: HO.LNP 11:22
PROVIDERS: Visit Provider Internal Medicine
DX: Z00.00 Encounter for general adult medical examination without abnormal findings (principal); Z12.5 Encounter for screening for malignant neoplasm of prostate; R73.03 Prediabetes; D72.820 Lymphocytosis (symptomatic); I10 Essential (primary) hypertension
CPT/HCPCS: 80053; 80061; 81001; 82043; 82570; 83036; 84153; 85025